=== PATIENT | male | born 1950 | race Caucasian/White ===

== ENCOUNTER 2017-09-27 12:34 | Observation (INO) | payer OTHER ==
[2017-09-27] VITALS (10 sets, daily range): BP systolic 120–146; BP diastolic 73–82
[~2017-09-27] VITALS: Ht 177.8 cm; Wt 88.5 kg
--- NOTE | ~2017-09-27 | CATHLAB ---
[facility] [place] [address] INVASIVE PROCEDURE REPORT Name: RONALDO WOODS Room #: 206-P [facility] IN M.R.#: [id number] Admission: 09/27/17 Attend Phys: Edmar Carvajal, Discharge: 09/27/17 Date of : 50 Date of Service: 09/29/17 1357 Report #: [id number] THIS REPORT FOR: //name// APPROVED REPORT Patient Details Patient Status: Out-Patient Room #: The patient is a 67 year-old male Event Personnel Edmar Carvajal Power Mule Operator, Rachael Soria, Claudio Troy RN, Nancy TERRITORY ACCOUNT MANAGER Procedures Performed Art Access - R femoral artery* Left Heart Cath w/or w/o Coronaries [id number] [facility] Aortogram Abdominal Peripheral Angio 269571 Hemostasis w/ Mynx 09773 Initial Mod Sed Same Phys/QHP Gr5y [id number] Procedure Narrative The patient was brought electively to the Cardiac Catheterization Laboratory and was prepped and draped in a sterile manner. The Right Groin^ was infiltrated with 1% Lidocaine subcutaneous anesthesia. A PINNACLE 6FR Sheath #[id number] sheath was inserted into the RFA^. Coronary angiography was performed using coronary diagnostic catheters. The right coronary system was accessed and visualized with a JR 4 catheter. The left coronary system was accessed and visualized with a JL 4 catheter. The left ventricle was accessed and visualized with a Pigtail catheter. Left ventricular/Aortic Valve gradient assessed via catheter pullback. Left ventriculogram was performed in SCHULTZ projection. An aortogram of the abdominal aorta was performed. Pre-demployment femoral angiogram was performed . Closure device was deployed with a 6 Fr Mynx. The patient tolerated the procedure well and there were no complications associated with the procedure. There was no hematoma. Intraoperative Conscious Sedation Sedation start time: 14:22 Case end Time: 14:43 Fentanyl 25.0 mcg Versed 2.0 mg Fluoro Time: 2.20 minutes Dose: DAP 3110.90 cGycm2 367 mGy Contrast Type and Amount: Omnipaque 120 ml Hemodynamics [facility] [address] [place] [address] INVASIVE PROCEDURE REPORT Name: RONALDO WOODS Room #: 206-P [facility] IN .R.#: [id number] Admission: 09/27/17 Attend Phys: Edmar Carvajal, Discharge: 09/27/17 Date of : 50 Date of Service: 09/29/17 1357 Report #: [id number] The aortic pressure is 121/62 mmHg with a mean of 87 mmHg. The left ventricular pressure is 142/4 mmHg with a mean of mmHg. The left ventricular end diastolic pressure is 21 mmHg. Conclusion #1 left main free of disease giving rise to LAD and circumflex #2 LAD with mild irregularities 30-40% of diagonal bifurcation. Extends to the apex #3 circumflex OM with mild disease nondominant vessel #4 dominant right coronary artery minimal disease large dominant system. #5 normal left ventricular size and systolic function EF 50-55% Continue aggressive risk factor modification no lifting for 48 hours to line tub Jacuzzi or Munoz for a week. <ELECTRONICALLY SIGNED> By: Edmar Carvajal MD, FACC 09/29/17 1357 56 135 Edmar Carvajal MD, FACC /INF
[2017-09-27] MEDS ORDERED: NORVASC2.5 MG PO (12:48)
[2017-09-27] MEDS ORDERED: COREG6.25 MG PO (12:48)
[2017-09-27] MEDS ORDERED: LISINOPRIL5 MG PO (12:49)
[2017-09-27] MEDS ORDERED: ASPIR 8181 MG PO (12:49)
[2017-09-27] MEDS ORDERED: METFORMIN HCL500 MG PO (12:49)
[2017-09-27] MEDS ORDERED: VITAMIN D2000 UNIT PO (12:50)
[2017-09-27] MEDS ORDERED: NORVASC 5 MG TAB5 MG PO (12:53)
[2017-09-27] MEDS ORDERED: CARVEDILOL12.5 MG PO (12:54)
[2017-09-27] MEDS ORDERED: LISINOPRIL-HCT1 EAC1 PO (12:55)
[2017-09-27] MEDS ORDERED: VITAMIN D31000 UNIT PO (12:56)
[2017-09-27 12:59] LABS: HEMATOCRIT 44.2 % (42.0-52.0); HEMOGLOBIN 14.9 gm/dL (14.0-18.0); MCH 32.3 pg (26.0-34.0); MCHC 33.7 g/dL (28.0-37.0); MCV 95.8 fL (80.0-100.0); RBC 4.61 mil/uL (4.50-6.00); RDW 13.6 % (10.5-14.5); WBC 4.5 thou/uL (4.0-11.0)
[2017-09-27 13:12] LABS: CALCIUM 9.5 mg/dL (8.5-10.1); CREATININE 0.8 mg/dL (0.7-1.3); POTASSIUM 4.1 mmol/L (3.5-5.1)
== END 2017-09-27 18:00 | disposition home or self-care (01) ==
LOC: CATH 12:34 → 2N 15:37 → CATH 15:38 → 2N 18:00
PROVIDERS: Internal Medicine Cardiovascular Disease
DX: R07.89 Other chest pain (principal); I10 Essential (primary) hypertension; E11.8 Type 2 diabetes mellitus with unspecified complications; G47.33 Obstructive sleep apnea (adult) (pediatric); E78.00 Pure hypercholesterolemia, unspecified; R94.39 Abnormal result of other cardiovascular function study; Z79.4 Long term (current) use of insulin; Z87.891 Personal history of nicotine dependence

== ENCOUNTER → 2019-12-27 | Outpatient (CLI) | payer OTHER ==
[~2019-12-27] MED LIST: ASPIR 8181 MG PO; CARVEDILOL12.5 MG PO; COREG6.25 MG PO; LISINOPRIL-HCT1 EAC1 PO; LISINOPRIL5 MG PO; METFORMIN HCL500 MG PO; NORVASC 5 MG TAB5 MG PO; NORVASC2.5 MG PO; VITAMIN D2000 UNIT PO; VITAMIN D31000 UNIT PO
== END ==
LOC: SJCVC 10:04 → CAT 10:04
DX: R94.31 Abnormal electrocardiogram [ECG] [EKG] (principal); I10 Essential (primary) hypertension; I25.10 Atherosclerotic heart disease of native coronary artery without angina pectoris; E78.00 Pure hypercholesterolemia, unspecified; E11.9 Type 2 diabetes mellitus without complications; Z79.82 Long term (current) use of aspirin; Z79.899 Other long term (current) drug therapy

== ENCOUNTER → 2020-01-07 | Outpatient (CLI) | payer OTHER | LOC: SJCVCIMAG 08:45 | PROVIDERS: ATTEND Internal Medicine Cardiovascular Disease | DX: R94.31 Abnormal electrocardiogram [ECG] [EKG] (principal); I08.1 Rheumatic disorders of both mitral and tricuspid valves; I25.10 Atherosclerotic heart disease of native coronary artery without angina pectoris; I10 Essential (primary) hypertension; E11.9 Type 2 diabetes mellitus without complications ==

== ENCOUNTER → 2020-12-24 | Outpatient (CLI) | payer OTHER | LOC: SJCVC 11:35 | PROVIDERS: ATTEND Internal Medicine Cardiovascular Disease | DX: I25.10 Atherosclerotic heart disease of native coronary artery without angina pectoris (principal); I10 Essential (primary) hypertension; R94.31 Abnormal electrocardiogram [ECG] [EKG]; E78.00 Pure hypercholesterolemia, unspecified; E11.9 Type 2 diabetes mellitus without complications; G47.33 Obstructive sleep apnea (adult) (pediatric); Z98.890 Other specified postprocedural states; Z79.82 Long term (current) use of aspirin; Z79.84 Long term (current) use of oral hypoglycemic drugs; Z79.899 Other long term (current) drug therapy; Z87.891 Personal history of nicotine dependence ==